=== PATIENT | male | born 1965 | race American Indian/Alaskan Native ===

== ENCOUNTER 2018-01-15 10:27 | Emergency (ER) | payer BC, OTHER ==
[2018-01-15 10:34] VITALS: BP 152/99
[2018-01-15] MEDS ORDERED: TORADOL IM ONE (13:08)
[2018-01-15] MEDS ORDERED: FLEXERIL PO ONE (13:08)
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
--- NOTE | 2018-01-15 14:57 | XRay Report ---
LEFT HAND, 3 views: History: Left hand pain. The bony architecture is intact. Bony alignment is normal. No soft tissue abnormalities are seen. The joint spaces appear preserved. IMPRESSION: No evidence for acute injury on x-ray.
--- NOTE | 2018-01-15 14:58 | XRay Report ---
CERVICAL SPINE, 3 views: History: Neck pain. Findings: There is straightening of the normal lordosis which could be secondary to spasm. Mild to moderate degenerative disc narrowing at C5-6. The remaining levels are within normal limits. No evidence for displaced fracture, subluxation or bone lesion. The prevertebral soft tissues are normal thickness. Impression: 1. No evidence for acute injury to the cervical spine.
== END 2018-01-15 15:40 | disposition home or self-care (01) ==
LOC: ED 10:27
DX: S13.4XXA Sprain of ligaments of cervical spine, initial encounter (principal); S63.91XA Sprain of unspecified part of right wrist and hand, initial encounter; V49.40XA Driver injured in collision with unspecified motor vehicles in traffic accident, initial encounter; I10 Essential (primary) hypertension; F17.200 Nicotine dependence, unspecified, uncomplicated; Y93.89 Activity, other specified; Y92.89 Other specified places as the place of occurrence of the external cause; Y99.8 Other external cause status
CPT/HCPCS: 72040; 73130; 96372; 99283; J1885